=== PATIENT | male | born 2000 | race Native Hawaiian/Other Pacific Islander ===

== ENCOUNTER 2022-01-28 12:08 | Emergency (ER) | payer OTHER ==
[~2022-01-28] VITALS: Ht 172.7 cm; Wt 68.0 kg
[2022-01-28 12:17] VITALS: TEMP 98.4
[2022-01-28 13:15] VITALS: BP 118/70
== END 2022-01-28 13:21 | disposition home or self-care (01) ==
LOC: ED 12:08
DX: S93.492A Sprain of other ligament of left ankle, initial encounter (principal); X50.1XXA Overexertion from prolonged static or awkward postures, initial encounter; Y92.89 Other specified places as the place of occurrence of the external cause
CPT/HCPCS: 96372; 99283; J1885